=== PATIENT | female | born 1950 | race Caucasian/White ===

== ENCOUNTER 2019-07-12 20:31 | Emergency (ER) | payer MEDICARE, OTHER ==
[~2019-07-12] VITALS: Ht 165.1 cm; Wt 68.0 kg
--- NOTE | 2019-07-12 20:44 | NUR ---
Dr. Amaro at bedside for MSE.
--- NOTE | 2019-07-12 21:06 | NUR ---
Xray at bedside.
--- NOTE | 2019-07-12 21:13 | NUR ---
Pt out of ER for CT.
--- NOTE | 2019-07-12 21:30 | NUR ---
Pt back to ER from CT.
[2019-07-12] MEDS ORDERED: SULFAMETH/TRIMETH 800/160 MG TABLET ONE (21:43)
[2019-07-12] MEDS ORDERED: SULFAMETH/TRIMETH 800/160 MG TABLET PO ONE (21:45)
[2019-07-12] MEDS ORDERED: HYDROCODONE/APAP 10-325 MG TABLET ONE (21:48)
[2019-07-12 22:00] VITALS: BP 132/68
[2019-07-12] MEDS ORDERED: HYDROCODONE/APAP 10-325 MG TABLET PO ONE (22:00)
--- NOTE | 2019-07-12 22:00 | NUR ---
Patient discharged to home in stable conditon. Written and verbal after care instructions given. Patient verbalizes understanding of instructions. Pt ambulated out of ER with steady gait, no acute signs of distress, VSS, all belongings taken, to be driven home by friend via private vehicle.
== END 2019-07-12 22:01 | disposition home or self-care (01) ==
LOC: ER 20:33
DX: S02.2XXA Fracture of nasal bones, initial encounter for closed fracture (principal); S01.21XA Laceration without foreign body of nose, initial encounter; S16.1XXA Strain of muscle, fascia and tendon at neck level, initial encounter; J45.909 Unspecified asthma, uncomplicated; F32.9 Major depressive disorder, single episode, unspecified; M79.642 Pain in left hand; W18.30XA Fall on same level, unspecified, initial encounter; Y93.89 Activity, other specified; Y92.89 Other specified places as the place of occurrence of the external cause; Y99.8 Other external cause status
CPT/HCPCS: 70486; 72125; 73130; A4217; A4663

== ENCOUNTER 2019-07-18 19:39 | Emergency (ER) | payer MEDICARE, OTHER ==
[~2019-07-18] VITALS: Ht 165.1 cm; Wt 68.0 kg
--- NOTE | 2019-07-18 20:30 | NUR ---
PATIENT WAS MSE BY DR LITTLE IN ROOM 05A.
--- NOTE | 2019-07-18 20:55 | NUR ---
Patient discharged to home in stable conditon. Written and verbal after care instructions given. Patient verbalizes understanding of instructions.
[2019-07-18 21:28] VITALS: BP 115/75
== END 2019-07-18 21:28 | disposition home or self-care (01) ==
LOC: ER 19:39
DX: S01.21XD Laceration without foreign body of nose, subsequent encounter (principal); J45.909 Unspecified asthma, uncomplicated; F32.9 Major depressive disorder, single episode, unspecified; X58.XXXD Exposure to other specified factors, subsequent encounter
CPT/HCPCS: A4663